=== PATIENT | female | born 1995 | race Caucasian/White ===

== ENCOUNTER 2024-08-23 01:38 | Observation (INO) | payer SELFPAY ==
[2024-08-23] MEDS ORDERED: Morphine 4 MG/ML VIAL ONE (02:01)
[2024-08-23] MEDS ORDERED: Mag-Al 1200 mg/1200 mg/30 ML UDCUP ONE (02:54)
[2024-08-23] MEDS ORDERED: Lidocaine Viscous Sol 2% 15 ml UD Cup ONE (02:54)
[2024-08-23 03:44] VITALS: BMI 35.5
[2024-08-23 08:52] LABS: ALT (SGPT) 12 U/L (8-55); AST (SGOT) 11 U/L (5-34); Albumin 2.8 g/dL (3.5-5.0); Alkaline Phosphatase 80 U/L (40-110); Anion Gap 12 mmol/L (10-20); BUN (Urea Nitrogen) 7 mg/dL (7.0-18.7); Bilirubin, Total 0.2 mg/dL (0.2-1.2); Calc. Creatinine Clearance 202 mL/min (70-130); Calcium 8.7 mg/dL (7.8-10.44); Carbon Dioxide 21 mmol/L (22-29); Chloride 106 mmol/L (98-107); Estimated GFR 123; Globulin 3.2 g/dL (2.4-3.5); Glucose 89 mg/dL (70-105); Potassium 3.8 mmol/L (3.5-5.1); Sodium 135 mmol/L (136-145)
[2024-08-23 09:07] LABS: #Basophils 0.02 10x3/uL (0.0-0.2); #Eosinophils 0.05 10x3/uL (0.0-0.5); #Monocytes 0.62 10x3/uL (0.0-1.1); %Basophils 0.2 % (0.0-2.0); %Eosinophils 0.6 % (0.0-6.0); %Lymphocytes 16.5 % (18.0-47.0); %Monocytes 7.6 % (0.0-10.0); %Neutrophils 74.5 % (40.0-75.0); Hematocrit 32.9 % (34.9-44.5); Hemoglobin 10.6 g/dL (12.0-15.5); Mean Corpuscular HGB CONC 32.2 g/dL (32.0-36.0); Mean Corpuscular Hemoglobin 29.9 pg (27.0-33.0); Mean Corpuscular Volume 92.7 fL (81.6-98.3); Mean Platelet Volume 11.6 fL (7.4-10.4); Platelet Count 198 10x3/uL (150-450); RBC Distribution Width 12.4 % (11.5-14.5); Red Blood Cell (RBC) Count 3.55 10x6/uL (3.90-5.03); White Blood Cell (WBC) Count 8.2 10x3/uL (3.5-10.5)
== END 2024-08-23 21:20 | disposition home or self-care (01) ==
LOC: CSHERS 01:38 → CSHLD/OP 03:13 → CSHLD 19:18
PROVIDERS: ADMIT Obstetrics & Gynecology; ATTEND Obstetrics & Gynecology
DX: O99.891 Other specified diseases and conditions complicating pregnancy (principal); R10.13 Epigastric pain; Z3A.27 27 weeks gestation of pregnancy; Z79.899 Other long term (current) drug therapy
CPT/HCPCS: 80053; 85025; 93005; 93010; 96372; 99283; 99285; J2272

== ENCOUNTER 2024-11-01 05:30 | Inpatient (IN) | payer OTHER, SELFPAY ==
[2024-10-30 12:33] LABS: Hematocrit 33.3 % (34.9-44.5); Hemoglobin 10.4 g/dL (12.0-15.5); Platelet Count 186 10x3/uL (150-450)
[2024-10-30 13:05] LABS: Syphilis Antibody Nonreactive (Nonreactive); Syphilis Antibody Index 0.09 S/CO (<1.00 Non-Reactive)
[2024-10-30 13:07] LABS: HBsAg Index 0.23 S/CO (0-0.99); Hep B Surf Ag Non-Reactive S/CO (NonReactive)
[2024-11-01 05:36] VITALS: BMI 39.9
[2024-11-01] MEDS ORDERED: Oxytocin 30 units/NS 500 ML 500 ML IV SCH ×2 (05:36→15:05)
[2024-11-01] MEDS ORDERED: Bicitra 30 ML UDCUP PO PRN (05:36)
[2024-11-01] MEDS ORDERED: Promethazine HCl 25 MG/ML VIAL IM PRN ×2 (05:36→08:58)
[2024-11-01] MEDS ORDERED: CEFAZOLIN 2 GM in Sodium Chloride 0.9% 100 ML IVPB SCH (05:36)
[2024-11-01] MEDS ORDERED: Famotidine/PF 20 mg/2ml Vial SLOW IVP PRN (05:36)
[2024-11-01] MEDS ORDERED: fentaNYL 50 mcg/mL 1 mL Vial SLOW IVP PRN ×2 (05:36→08:58)
[2024-11-01] MEDS ORDERED: Ondansetron PF 4 MG/2 ML Vial IVP PRN ×4 (05:36→15:05)
[2024-11-01] MEDS ORDERED: hydrALAZINE 20 MG/ML VIAL SLOW IVP PRN ×2 (05:36→15:05)
[2024-11-01] MEDS: Lactated Ringer's 1,000 ML IV SCH (06:10)
[2024-11-01] MEDS ORDERED: diphenhydrAMINE 50 MG/ML VIAL IVP PRN (08:58)
[2024-11-01] MEDS ORDERED: Meperidine HCl/PF 25 MG (1 mL) VIAL SLOW IVP PRN (08:58)
[2024-11-01] MEDS ORDERED: Naloxone HCl 0.4 mg/ml Vial IVP PRN ×2 (08:58)
[2024-11-01] MEDS ORDERED: Naloxone HCl 0.4 mg/ml Vial IV PRN (08:58)
[2024-11-01] MEDS ORDERED: Moisturizing Cream (Eucerin) 113 GM JAR TOP PRN (08:58)
[2024-11-01] MEDS ORDERED: HYDROmorphone 0.5 MG/0.5 ML SYRINGE SLOW IVP PRN (08:58)
[2024-11-01] MEDS ORDERED: Communication Order-Pharmacy FS SCH (09:00)
[2024-11-01] MEDS: Ketorolac Tromethamine 30 MG (1 mL) VIAL IVP SCH (09:49)
[2024-11-01] MEDS ORDERED: Lanolin Ointment 7 GM TUBE TOP PRN (15:05)
[2024-11-01] MEDS ORDERED: Bisacodyl 10 MG SUPP PR PRN (15:05)
[2024-11-01] MEDS ORDERED: diphenhydrAMINE 25 MG CAP PO PRN (15:05)
[2024-11-01] MEDS ORDERED: Acetaminophen 325 MG TAB PO PRN (15:05)
[2024-11-01] MEDS: Dexmedetomidine 200 MCG/2 ML VIAL ONE (15:10)
[2024-11-01] MEDS: Morphine PF 10 MG/10 ML VIAL ONE (15:12)
[2024-11-01] MEDS: Phytonadione Neonatal 1 MG/0.5 ML AMP ONE ×2 (15:13)
[2024-11-01] MEDS: Oxytocin 10 UNITS/ML VIAL ONE (15:13)
[2024-11-01] MEDS: PHENYLEPHRINE-NS 100 MCG/ML 10 ML SYRINGE ONE (15:13)
[2024-11-01] MEDS: Erythromycin Base 0.5% Oint 1 GM TUBE ONE (15:13)
[2024-11-01] MEDS: Ondansetron PF 4 MG/2 ML Vial ONE (15:13)
[2024-11-01] MEDS: Ketorolac Tromethamine 30 MG (1 mL) VIAL IVP PRN (15:35)
[2024-11-01] MEDS: Docusate 100 MG CAP PO SCH ×2 (19:04→20:44)
[2024-11-01] MEDS: Ferrous Sulfate 325 MG TAB PO SCH ×2 (19:04→20:44)
[2024-11-01] MEDS: Prenatal Vitamin 1 TAB PO SCH (19:04)
[2024-11-02 05:32] LABS: Hematocrit 27.7 % (34.9-44.5); Hemoglobin 8.7 g/dL (12.0-15.5); Mean Corpuscular HGB CONC 31.4 g/dL (32.0-36.0); Mean Corpuscular Hemoglobin 28.3 pg (27.0-33.0); Mean Corpuscular Volume 90.2 fL (81.6-98.3); Mean Platelet Volume 12.1 fL (7.4-10.4); Platelet Count 140 10x3/uL (150-450); RBC Distribution Width 16.5 % (11.5-14.5); Red Blood Cell (RBC) Count 3.07 10x6/uL (3.90-5.03); White Blood Cell (WBC) Count 8.01 10x3/uL (3.5-10.5)
[2024-11-02] MEDS: Prenatal Vitamin 1 TAB PO SCH (08:20)
[2024-11-02] MEDS: Simethicone Chewable 80 MG TAB PO PRN (09:36)
[2024-11-02] MEDS: HYDROcodone/Acetaminophen 5/325 mg Tablet PO PRN ×2 (09:36→20:02)
[2024-11-02] MEDS: Ibuprofen 800 MG TAB PO SCH (13:03)
[2024-11-03] MEDS: Boostrix 0.5 ML (Tdap) VIAL (>/=7 yrs of age) IM ONE (07:55)
[2024-11-05 12:33] VITALS: BP 140/82; TEMP 98.3
== END 2024-11-05 14:50 | disposition home or self-care (01) | DRG 788 ==
LOC: CSHLD 05:30 → CSHPP 14:00
PROVIDERS: ADMIT Obstetrics & Gynecology; ATTEND Obstetrics & Gynecology
PROC: 10D00Z1 Extraction of Products of Conception, Low, Open Approach (ICD-10-PCS; principal; 2024-11-01)
DX: O32.1XX0 Maternal care for breech presentation, not applicable or unspecified (principal); O13.4 Gestational [pregnancy-induced] hypertension without significant proteinuria, complicating childbirth; O99.214 Obesity complicating childbirth; O90.81 Anemia of the puerperium; D64.9 Anemia, unspecified; Z3A.37 37 weeks gestation of pregnancy; Z37.0 Single live birth
CPT/HCPCS: 36415; 51702; 85014; 85018; 85027; 85049; 86780; 86850; 86900; 86901; 87340; J1885; J2274; J2405; J2590; J7120